=== PATIENT | male | born 1965 | race Two or more races ===

== ENCOUNTER 2025-01-24 12:36 | Emergency (ER) | payer OTHER ==
[~2025-01-24] VITALS: Ht 180.3 cm; Wt 95.3 kg
[2025-01-24] MEDS ORDERED: COZAAR100 MG PO (13:06)
[2025-01-24] MEDS ORDERED: NIFEDIPINE 10 MG CAPSULE PO ONE ×2 (13:45→13:53)
[2025-01-24] MEDS ORDERED: MECLIZINE HCL 12.5 MG TABLET PO ONE ×2 (13:45→13:53)
[2025-01-24 15:47] LABS: HEMATOCRIT 53.1 % (39.0-48.0); HEMOGLOBIN 17.8 g/dL (13-16.00); MEAN CELL VOLUME 86.6 fL (80.0-100.00); MEAN CORPUSCULAR HGB CONC 33.5 g/dl (32.0-36.0); PLATELET COUNT 241 K/uL (150-450); RED BLOOD COUNT 6.13 M/uL (4.00-6.00); RED CELL DISTRIBUTION WIDTH 13.4 % (11.5-14.5)
[2025-01-24 16:11] LABS: ALBUMIN 3.8 gm/dL (3.4-5.0); BILIRUBIN TOTAL 0.85 mg/dL (0.3-1.2); CALCIUM 9.1 mg/dL (8.5-10.1); CREATININE SERUM 1.15 mg/dL (0.70-1.30); GFR 65.31; GLOBULINA 3.5 G/DL (2.4-3.5); POTASSIUM 3.81 mEq/L (3.5-5.1); TOTAL PROTEIN 7.3 gm/dL (6.4-8.2)
[2025-01-24] MEDS ORDERED: MECLIZINE HCL25 MG PO (17:45)
== END 2025-01-24 18:13 | disposition home or self-care (01) ==
LOC: ER 12:37
PROVIDERS: General Practice
DX: R42 Dizziness and giddiness (principal); Z20.822 Contact with and (suspected) exposure to COVID-19; I10 Essential (primary) hypertension; E11.9 Type 2 diabetes mellitus without complications; Z88.0 Allergy status to penicillin